=== PATIENT | male | born 1965 | race Caucasian/White ===

== ENCOUNTER 2021-03-14 09:31 | Emergency (ER) | payer SELFPAY ==
[~2021-03-14] VITALS: Ht 188 cm; Wt 93.0 kg
[2021-03-14 10:37] VITALS: BP 156/79
== END 2021-03-14 10:39 | disposition home or self-care (01) ==
LOC: ER 09:45
DX: R03.0 Elevated blood-pressure reading, without diagnosis of hypertension (principal)
CPT/HCPCS: 93005; 99284